=== PATIENT | female | born 2000 | race American Indian/Alaskan Native ===

== ENCOUNTER 2023-07-09 11:27 | Emergency (ER) | payer SELFPAY | END 2023-07-09 13:29 | disposition home or self-care (01) | LOC: MW.ED 11:27 | DX: Z75.8 Other problems related to medical facilities and other health care | CPT/HCPCS: 99283 ==

== ENCOUNTER 2024-11-09 02:56 | Emergency (ER) | payer SELFPAY | END 2024-11-09 04:30 | LOC: MW.ED 02:56 | DX: Z53.21 Procedure and treatment not carried out due to patient leaving prior to being seen by health care provider (principal) ==